=== PATIENT | male | born 1960 | race African-American/Black ===

== ENCOUNTER → 2019-01-04 | Outpatient (CLI) | payer BC ==
[~2019-01-04] VITALS: Ht 167.6 cm; Wt 81.6 kg
[~2019-01-04] MED LIST: AMARYL4 MG PO; BENADRYL25 MG PO; GLUMETZA500 PO; INVANZ1 GM IV; INVOKANA300 MG PO; METFORMIN HCL500 MG PO; NORCO 5-325 TA1 EAC1 PO; OSENI 25-30 MG1 EACH PO; PERCOCET 10-321 EACH PO; TRAMADOL 50 MG50 MG PO; VALSARTAN-HCTZ1 EAC3 PO
--- NOTE | ~2019-01-04 | HPC ---
[facility] [place] [address] PAIN MANAGEMENT CONSULTATION Name: ALISSA KRUEGER [id number] Admission: 01/04/19 ������������������ Attend Phys: Alfredo Rey DO Discharge: ������������������ Date of : 62 Report #: [id number] THIS REPORT FOR: //name// CC: Alfredo Marcos MD DATE OF SERVICE: 01/04/2019 REFERRING PHYSICIAN: Mi Rubio MD. CHIEF COMPLAINT: Low back pain. HISTORY OF PRESENT ILLNESS: As you know, the patient is a 58-year-old male who reports acute onset of low back pain that began 05/28/2018. The patient reports that he was involved in some type of injury at work that led to symptoms involving his low back and his neck. Apparently, the neck findings were such that the patient had to undergo surgery. He continues to complain of chronic back pain for which he was sent for MRI. The MRI findings show minimal changes fairly typical for 58-year-old males. He has been treated for the cervical issues. He has also sought evaluation for left shoulder pain that has been diagnosed as acromioclavicular arthritic changes fairly typical for a 58-year-old male. There has been no surgery proposed for the left shoulder to date. The patient was subsequently referred to our clinic to discuss treatment options for ongoing chronic low back pain. The patient indicates his pain is steady, periodic and brief in its presentation. He indicates the pain as shooting, aching, throbbing and stabbing, places current pain score 6/10, daily average 7/10, worst pain has been as 10/10. The patient states his pain is exacerbated with repeated movement, standing for any length of time or sitting for any length of time, tends to improve with sleep. The patient has been referred to our service by his primary care physician and his surgeon for evaluation for suspected lumbar radiculopathy. PAST MEDICAL HISTORY: 1. Diabetes mellitus type 2. 2. Hypertension. 3. Chronic neck pain. 4. Chronic low back pain. PAST SURGICAL HISTORY: Fusion of the cervical spine. SOCIAL HISTORY: The patient smokes 4 cigarettes per day. He has done this so for approximately 15 years. He indicates use of marijuana. He indicates use of [address] [address] PAIN MANAGEMENT CONSULTATION Name: ALISSA KRUEGER Room #: REG [facility]#: [id number] Admission: 01/04/19 ������������������ Attend Phys: Alfredo Rey DO Discharge: ������������������ Date of : 62 Report #: [id number] one alcohol beverage per day. 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 He is working, but at a sedentary work level at present. He is considering litigation and is currently being covered by workmen's compensation for his neck injury. He is unaccompanied today. REVIEW OF SYSTEMS: Positive for decrease in appetite, fatigue and weakness, frequent and recurrent headaches, wearing corrective eyewear, chronic sinus problems with rhinitis, shortness of breath walking or lying flat, numbness and tingling sensations in the upper extremities bilaterally, nervousness, depression, insomnia, memory loss and confusion, chronic low back pain. All other review of systems negative per 12-point review of systems other than those listed in history of present illness. PAIN IMPACT SCORE: 47/70 indicating moderate to severe interference of daily activities secondary to pain. ALLERGIES: NO KNOWN DRUG ALLERGIES. CURRENT MEDICATIONS: Benadryl 25 mg p.o. at bedtime, hydrocodone/acetaminophen 5/325 one tab p.o. q. 4 hours p.r.n. for pain, tramadol 50 mg every 6 hours p.r.n. for mild pain, glimepiride 4 mg once a day, metformin 500 mg 2 tabs p.o. b.i.d., Invokana 300 mg once a day, valsartan/hydrochlorothiazide 320/25 mg 1 tab p.o. every day. IMAGING: MRI of the lumbar spine obtained on 06/23/2018 shows L1-L2 unremarkable, L2-L3 unremarkable. L3-L4 shows mild disk desiccation, mild bulging of the annulus, mild bilateral facet arthropathy and ligamentum flavum thickening, mild effacement of the thecal sac, mild to moderate bilateral neural foraminal narrowing. L4-L5 shows disk desiccation, diffuse disk bulge, bilateral facet arthropathy, ligamentum flavum hypertrophy, mild narrowing of the spinal canal and compression of the thecal sac, moderate to advanced bilateral neural foraminal stenosis. L5-S1 disk desiccation, diffuse disk bulge present slightly eccentric to the left, hypertrophic facet arthropathy, ligamentum flavum hypertrophy, mild narrowing of the central canal with compression of the ventral thecal sac, moderate right and moderate to advanced left neural foraminal stenosis. PHYSICAL EXAMINATION: VITAL SIGNS: Blood pressure 145/92, pulse 86, respiratory rate 20 and unlabored. The patient is 100% on room air. Height 5 feet 6 inches tall, weight 180 pounds, BMI calculated 29.1. GENERAL: Well-developed, well-nourished, well-hydrated 58-year-old male who appears his stated age. He is placing pain score today 6/10. HEENT: Normocephalic, atraumatic. Pupils equal, round, reactive to light. Extraocular muscles are intact. Sclerae nonicteric without injection. NEUROLOGIC: Cranial nerves 2-12 grossly intact. Speech fluent. The patient [facility] [address] [place] [address] PAIN MANAGEMENT CONSULTATION Name: ALISSA KRUEGER LOUIE Room #: REG [facility].#: [id number] Admission: 01/04/19 ������������������ Attend Phys: Alfredo Rey DO Discharge: ������������������ Date of : 62 Report #: [id number] deemed a fair historian. LUNGS: Clear, no wheeze, rhonchi or rales. CARDIOVASCULAR: Regular. No appreciable gallop, no rub. ABDOMEN: Soft, nontender, nondistended, normoactive bowel sounds. EXTREMITIES: Show no clubbing, no cyanosis, and no edema. MUSCULOSKELETAL: There is mild palpatory tenderness over the paraspinal musculature of lower lumbar spine. No spinous process tenderness. Seated straight leg raising negative. Supine straight leg raising negative. Chris's test negative. Modified Gaenslen's positive for axial low back pain. Ankle clonus negative. Babinski is negative. Muscle bulk and tone appears equal and symmetrical in comparing left lower extremity over right. Deep tendinous reflexes are 2+/4 at patella and Achilles. Pain is elicited standing from a seated position. Lumbar provocation testing is met with increasing pain. ASSESSMENT: 1. Facet arthropathy of the lumbar spine without radiculopathy. 2. Degeneration of the lumbar spine. 3. Mild displacement of lumbar intervertebral disk without radiculopathy. 4. Neural foraminal stenosis of lumbar spine. 5. Intractable pain. PLAN: 1. Based on today's physical exam and the history the patient has provided, the description the patient uses in regards to pain as well as the location of symptoms and the findings of his MRI, likely source of the patient's pain is a combination of chronic lumbar radiculopathy without significant radiation of symptoms and facet arthropathy of the lumbar spine. The findings of the patient's MRI appear to be age-related findings. I do not note any acute changes that would correlate with the patient's symptoms. The findings of facet arthropathy and ligamentum flavum hypertrophy are definitively age related. These are not findings that are typical from any type of injury. There is a mildly displaced eccentric disk bulge noted at the L5-S1 level, but symptoms are not consistent with left radiculopathy that would be possible from this eccentric disk positioning. The axial nature of the patient's current symptoms would more correlate with facet arthropathy. We discussed with the patient today treatment options to address not only chronic lumbar radiculopathy, but also to address facet arthropathy, the following was discussed with the patient. We discussed physical therapy, stretching exercises, core strengthening as the gold standard treatment. Given the lack of any significant findings from the MRI, this would be the most effective long-term treatment option. The patient apparently has begun physical therapy or is still in physical therapy. It was hard to discern from the patient's conversation today, though I do not feel that physical therapy has been concentrated on the back, it appears to be related more to cervical and upper extremity issues. This could be adjusted to address low back as well. We discussed medication management with suggestions of [address] [address] PAIN MANAGEMENT CONSULTATION Name: ALISSA KRUEGER Room #: REG [facility] Cameron#: [id number] Admission: 01/04/19 ������������������ Attend Phys: Alfredo Rey, DO Discharge: ������������������ Date of : 62 Report #: [id number] treatment to initiate neuropathic pain medication, which will help not only with the patient's ongoing upper extremity neuropathic symptoms, but also could help alleviate some of his axial back pain. We also discussed injection therapies for which the patient was referred to our clinic to address chronic lumbar radicular symptoms. We discussed epidural injection to address facet arthropathy pain, intra-articular facet injections, medial branch nerve blocks and radiofrequency lesioning. We also discussed surgical options, though at this point, surgery does not appear to be necessary, though addressing the neural foramen may be ultimately necessary in the future. After reviewing the risks and benefits of all proposed treatment options, the patient chose to delay interventional treatments. 2. We have advised the patient at this time that we would make suggestions to his PCP in regards to addition of neuropathic medications. We would recommend either gabapentin or possibly Cymbalta as this will help with his neuropathic pain he is describing in his upper extremities that is residual post-surgery and Cymbalta has been indicated to be an effective agent for chronic axial back pain. In fact, its new indication is for chronic axial back symptoms. We will defer to the primary team if they wish to initiate any neuropathic medications. 3. We have advised the patient we will be available to see him back in followup visit to address his back symptoms with injection therapies. We would recommend initially an epidural injection to address the radicular component to his pain with the intermittent symptoms that radiate down the legs. We would then look towards doing intra-articular facet injections, medial branch nerve blocks and radiofrequency lesioning to address his age-related facet arthropathy pain noted on MRI. The patient will consider his options and make an appointment back with us when he feels he needs to undergo more aggressive treatment options. 4. We wish to thank the referring physicians for the opportunity to see this patient in consultation. We will await his return to determine interventional treatments and will keep you apprised of his response. Again, we wish to thank each of the referring physicians for the opportunity to see this patient in consultation. ��������������������������������������������� ���������������������������������������� By: ��������������������������������������������� [id number] 0001 Alfredo Rey DO /nt
[2019-01-04 13:35] VITALS: BP 145/92
--- NOTE | 2019-01-04 14:16 | NUR ---
Pain Clinic Assessment: 1. History of Osteoarthritis: History of Rheumatoid Arthritis: 2. Height: 5 ft. 6 in. 167.6 cm. Weight: 180.0 lb. oz. 81.648 kg. Patient's BMI: 29.1 3. Vital Signs: BP: 145/92 Pulse: 86 Resp: 20 Temp: 02 Sat: 100 ECG Mon: 4. Pain Intensity: 6 5. Fall Risk: Dizziness: Y Needs help standing or walking: Y Fallen in the last 3 months: Y Fall risk comments: 6. Patient on Blood Thinner: None 7. History of Hypertension: Y 8. Opioid Therapy greater than 6 weeks: Y Opiate Contract Signed: 9. Risk Assessment Tool Provided: 10. Functional Assessment Tool: 11. Recreational Drug Use: Past greater than 3 mos Drug Type: MARAJUANIA Tobacco Use: Current Every Day Smoker Tobacco Type: Cigarettes Amount or Packs/day: How Many Years: 15 Alcohol Use: Yes Frequency: Weekly Quant: 4
== END ==
LOC: PAIN 06:47
DX: M47.816 Spondylosis without myelopathy or radiculopathy, lumbar region (principal); M51.26 Other intervertebral disc displacement, lumbar region; M54.2 Cervicalgia; G89.4 Chronic pain syndrome; E11.9 Type 2 diabetes mellitus without complications; I10 Essential (primary) hypertension; F17.210 Nicotine dependence, cigarettes, uncomplicated; Z79.899 Other long term (current) drug therapy; Z72.89 Other problems related to lifestyle

== ENCOUNTER 2020-05-03 21:36 | Inpatient (IN) | payer BC ==
[~2020-05-03] VITALS: Ht 170.2 cm; Wt 70.3 kg
--- NOTE | ~2020-05-03 | O ---
[facility] [place] [address] [place] [address] OPERATIVE REPORT Name: ALISSA KRUEGER Room #: 433-I ADM IN M.R.#: [id number] Admission: 05/04/20 Attend Phys: Rod Yeager MD Discharge: Date of : 62 Report #: [id number] THIS REPORT FOR: cc: Mi Rubio MD,Mi Warren,Wilfredo Srinivasan MD ~ CC: Mi Yeager DATE OF SERVICE: 05/06/2020 PREOPERATIVE DIAGNOSIS: Left ischiorectal abscess. POSTOPERATIVE DIAGNOSIS: Left ischiorectal abscess. OPERATION: Incision and drainage of left ischiorectal abscess. SURGEON: Wilfredo Warren MD ANESTHESIA: General. ESTIMATED BLOOD LOSS: Minimal. SPECIMEN: None. DESCRIPTION OF PROCEDURE: After informed consent was obtained, the patient was brought to the operating room and placed supine. SCDs were placed and working, preoperative antibiotics were administered, general anesthesia was induced. The patient was placed in the dorsal lithotomy position. The area was then prepped and draped with Betadine. He had an area of fluctuance on the left side approximately 1 cm from the anal verge. This was incised with the cautery. A fernández of pus was noted. I then excised an approximately 2 x 2 cm area of skin. Again, more pus was expressed. Loculations were broken up bluntly. I then irrigated the area copiously with normal saline. It was then packed with sterile gauze. Sterile dressings were applied. COMPLICATIONS: None. DISPOSITION: The patient was taken to recovery in satisfactory condition. By: [id number] Wilfredo Warren MD /nt
[2020-05-03 21:39] VITALS: BP 101/56
[2020-05-03] MEDS ORDERED: TYLENOL325 MG PO (22:07)
[2020-05-03] MEDS ORDERED: HYDROCHLOROTHIA25 M2 PO (22:09)
[2020-05-03] MEDS ORDERED: COZAAR 25 MG TA25 M2 PO (22:10)
[2020-05-03] MEDS ORDERED: SENNA PLUS TAB1 EACH PO (22:10)
[2020-05-03] MEDS ORDERED: OXYCODONE PO (22:11)
[2020-05-03] MEDS ORDERED: NOVOLOG100 UNIT/M SUBQ (22:11)
[2020-05-03] MEDS ORDERED: AMARYL2 MG PO (22:12)
[2020-05-03] MEDS ORDERED: CEFTRIAXONE2 GM IV (22:13)
[2020-05-03] MEDS ORDERED: SLEEP AID50 MG PO (22:14)
[2020-05-03] MEDS ORDERED: MAG-AL LIQUID30 ML PO (22:15)
[2020-05-04] MEDS ORDERED: BISACODYL10 MG RECTAL (01:09)
[2020-05-04 02:36] LABS: URINE BILIRUBIN NEGATIVE (Negative); URINE BLOOD 1+ (Negative); URINE CLARITY SL CLOUDY; URINE COLOR YELLOW; URINE GLUCOSE-RANDOM* NEGATIVE (Negative); URINE KETONES NEGATIVE (Negative); URINE NITRITE-REFLEX NEGATIVE (Negative); URINE PROTEIN (DIPSTICK) 2+ (Negative); URINE UROBILINOGEN 0.2 E.U./dl (0.2-1.0)
[2020-05-04 03:04] LABS: URINE LEUKOCYTES-REFLEX 1+ (Negative)
[2020-05-04 03:16] LABS: BACTERIA-REFLEX 1-9 Few /HPF (None Seen); CASTS None Seen /LPF (None Seen); CRYSTALS None Seen /LPF (None Seen); MUCUS 4-6 Moderate strn/LPF (None Seen); SQUAMOUS 0-3 Few /LPF (0-3); URINE RBC 3-10 Few /HPF (0-2); URINE WBC-REFLEX 6-15 Few /HPF (0-5)
[2020-05-04 03:20] LABS: ABSOLUTE NEUTROPHILS 10.1 thou/uL (1.4-8.2); BASOPHILS 0.6 % (0.0-2.0); EOSINOPHILS 2.6 % (0.0-3.0); HEMATOCRIT 25.4 % (42.0-52.0); HEMOGLOBIN 8.2 gm/dL (14.0-18.0); LYMPHOCYTES 14.8 % (24.0-44.0); MCH 26.2 pg (26.0-34.0); MCHC 32.4 g/dL (28.0-37.0); MCV 80.9 fL (80.0-100.0); MONOCYTES 10.3 % (1.0-8.0); PLATELET COUNT 518 thou/uL (150-400); POLYS 71.7 % (36.0-66.0); RBC 3.14 mil/uL (4.50-6.00); RDW 14.4 % (10.5-14.5); WBC 14.1 thou/uL (4.0-11.0)
[2020-05-04 03:28] LABS: CALCIUM 8.6 mg/dL (8.5-10.1); CREATININE 1.8 mg/dL (0.7-1.3); POTASSIUM 3.5 mmol/L (3.5-5.1)
[2020-05-04 03:34] LABS: ALBUMIN 1.6 g/dL (3.4-5.0); DIRECT BILIRUBIN 0.1 mg/dL (<0.1-0.2); TOTAL BILIRUBIN 0.4 mg/dL (0.2-1.0); TOTAL PROTEIN 7.7 g/dL (6.4-8.2)
--- NOTE | 2020-05-04 08:29 | NUR ---
SPOKE TO PT'S BROTHER (TAMMY) AND PROVIDED AN UPDATE [phone]
--- NOTE | 2020-05-04 12:43 | NUR ---
RD consult received today for pt with poor nutrition. Pt not admitted to a room yet. From a rehab facility and with sepsis due to perirectal abscess, UTI. Hx diabetes and pelvic hematoma following a fall. Chart reviewed, pt currently npo. Possible severe wt loss over 1.5yrs 30 lb if wts in [employer] are accurate. Provider has indicated severe protein calorie malnutrition. Will follow up Thursday, once pt assigned an acute stay room and complete nutrition evaluation.
[2020-05-04 15:00] VITALS: BP 100/69
[2020-05-04 21:32] VITALS: BP 111/68
--- NOTE | 2020-05-04 21:49 | NUR ---
Attempted to call report to RN on 4th floor. Will attempt to call back.
--- NOTE | 2020-05-04 22:01 | NUR ---
ATTEMPTED TO CALL BACK TO THE ER. NO RESPONSE.
[2020-05-04 22:51] VITALS: BP 101/48
[2020-05-04 23:06] LABS: GLYCOHEMOGLOBIN (HGB A1C) 11.6 % (4.8-5.6)
[2020-05-04 23:22] VITALS: BP 106/64
--- NOTE | 2020-05-05 04:24 | NUR ---
PT ADMITTED INTO ROOM 433 AT AROUND 2300 HRS. PT ALERT AND ORIENTED. AFEBRILE. CONTINUES ON AGGRESSIVE ABT TREATMENT FOR THE PERIRECTAL ABCSESS. BUTTOCK IS VERY TENDER. PT HAD A BM. HE HAS NO CONTROL OF BM AND ALSO TENDS TO BE INCONTINENT OF BLADDER. DENIES ANY NAUSEA OR VOMITING. C/O ALOT OF ABDOMINAL GASES.NO EDEMA. SCDS IN PLACE TO BLE. IVF INFUSING TOO.NEEDS ASSIST TO REPOSITION IN BED.DENIES ANY SOA OR COUGH.IVP MORPHINE WORKING FOR HIS PAIN.FALL PREC IN PLACE.CALL LIGHT WITHIN REACH.WILL CONTINUE WITH POC TILL EOS.
[2020-05-05 08:00] VITALS: BP 117/59
[2020-05-05 08:19] LABS: HEMATOCRIT 22.5 % (42.0-52.0); HEMOGLOBIN 7.2 gm/dL (14.0-18.0); MCH 26.1 pg (26.0-34.0); MCHC 32.1 g/dL (28.0-37.0); MCV 81.5 fL (80.0-100.0); PLATELET COUNT 561 thou/uL (150-400); RBC 2.76 mil/uL (4.50-6.00); RDW 14.8 % (10.5-14.5); WBC 13.6 thou/uL (4.0-11.0)
[2020-05-05 08:35] LABS: CALCIUM 8.1 mg/dL (8.5-10.1); CREATININE 1.1 mg/dL (0.7-1.3); POTASSIUM 4.9 mmol/L (3.5-5.1)
[2020-05-05 10:32] LABS: ALBUMIN 1.4 g/dL (3.4-5.0); TOTAL BILIRUBIN 0.2 mg/dL (0.2-1.0); TOTAL PROTEIN 7.5 g/dL (6.4-8.2)
[2020-05-05 10:35] LABS: EOSINOPHILS 3.8 % (0.0-3.0); LYMPHOCYTES 13.1 % (24.0-44.0); MONOCYTES 8.9 % (1.0-8.0); POLYS 73.7 % (36.0-66.0)
[2020-05-05 10:36] LABS: ABSOLUTE NEUTROPHILS 10.1 thou/uL (1.4-8.2); BASOPHILS 0.5 % (0.0-2.0)
--- NOTE | 2020-05-05 10:40 | NUR ---
discussed during prime time, going for procedure on thursday for derrell rectal abscess.
[2020-05-05 16:00] VITALS: BP 111/57
[2020-05-05 19:27] VITALS: BP 110/57
--- NOTE | 2020-05-05 20:02 | NUR ---
PATIENT HAS RESTED IN BED THERAPY DID WORK WITH PATIENT. PT HAS HAD PRN PAIN MED WHEN REQUESTED. PLEASANT AND COOPERATIVE WITH CARE. PT TO BE NPO AT MIDNIGHT DR HERRERA TO TAKE PATIENT TO SURGERY 05/06/20.PT HAS HOUSTON RECTAL ABSCESS. PT PLEASANT AND COOPERATIVE WITH CARE.
--- NOTE | 2020-05-06 02:00 | NUR ---
ASSESSMENT COMPLETED. PT CONTINUES ON ABTS AND IVF. AFEBRILE. HE IS MOVING ALOT BETTER IN THE BED W/O MUCH PAIN. SOME STOOL INCONTINENCE. HE WAS ABLE TO USE URINAL BUT WAS INCONTINENT X 1.NPO AFETR MIDNOC. PLAN FOR I/D TODAY.
[2020-05-06 06:33] LABS: HEMATOCRIT 23.1 % (42.0-52.0); HEMOGLOBIN 7.6 gm/dL (14.0-18.0); MCHC 32.9 g/dL (28.0-37.0); MCV 82.1 fL (80.0-100.0); RBC 2.81 mil/uL (4.50-6.00); RDW 14.7 % (10.5-14.5); WBC 12.9 thou/uL (4.0-11.0)
[2020-05-06 06:40] LABS: CALCIUM 8.1 mg/dL (8.5-10.1); CREATININE 1.1 mg/dL (0.7-1.3); POTASSIUM 4.6 mmol/L (3.5-5.1)
[2020-05-06 07:15] VITALS: BP 129/56
--- NOTE | 2020-05-06 10:43 | NUR ---
PT CARE ASSUMED AT 0700. A&Ox4. PT NOT ABLE TO HOLD HIS BOWELS DUE TO THE PRESSURE FROM HIS ABCESS. PT SOAKED IN URINE AND FEECESS. SHOWER GIVEN. SCD'S IN PLACE. IV PATENT WITH NO REDNESS OR EDEMA, FLUIDS INFUSING. COVID NEGATIVE. FALL PROTOCOL IN PLACE. PT WEARING BRIEFS WITH PADDING. OT/PT ON BOARD. ACHS. NPO SINCE MIDNIGHT. SURGERY TODAY. WBC 12.9 THIS AM. VITALS ARE STABLE. CALL LIGHT IN REACH. WILL CONTINUE TO MONITOR.
[2020-05-06 11:12] VITALS: BP 122/58
[2020-05-06 15:25] VITALS: BP 122/69
[2020-05-06 19:45] VITALS: BP 99/53
[2020-05-07 00:10] VITALS: BP 92/54
[2020-05-07 02:50] VITALS: BP 102/67
--- NOTE | 2020-05-07 04:34 | NUR ---
PT LYING IN BED. SOME INCONTINENCE. PERCOCET PROVIDING PAIN RELIEF. RESTING COMFORTABLY. NO NEEDS VOICED. CALL LIGHT WITHIN REACH. FREQUENT OBSERVATION.
[2020-05-07 06:07] LABS: HEMATOCRIT 23.2 % (42.0-52.0); HEMOGLOBIN 7.4 gm/dL (14.0-18.0); MCH 26.7 pg (26.0-34.0); MCV 83.4 fL (80.0-100.0); RBC 2.79 mil/uL (4.50-6.00); RDW 15.2 % (10.5-14.5); WBC 11.6 thou/uL (4.0-11.0)
[2020-05-07 06:30] LABS: CREATININE 1.1 mg/dL (0.7-1.3); POTASSIUM 4.3 mmol/L (3.5-5.1)
--- NOTE | 2020-05-07 09:24 | NUR ---
ASSESSMENT: CM REVIEWED CHART AND SPOKE WITH PATIENT. PT IS ALERT AND ORIENTED X4. PT WAS ADMITTED FOR SEPSIS AND HAS LEFT HOUSTON-RECTAL ABSESS. PT HAD I & D ON 05/06 AND IS ON IV ANBX. PT CAME FROM [facility]. PT REPORTS HE NORMALLY LIVES IN AN APT ALONE AND HAS A CANE AND WALKER AT HOME. PT STATES DEPENDING ON HOW HE DOES WITH THERAPY HE PLANS TO GO BACK TO [facility] OR HOME TO HIS SISTERS HOME WITH HH. CM FAXED CLINICAL TO [facility] TO UPDATE THEM. PT REPORTS THAT HE BELIEVES HIS SOCIAL SECURITY IS STARTING ON 05/08 BUT WOULD LIKE TO VERIFY THAT. CM SENT REFERRAL TO MED ASSIST. CM WILL CONTINUE TO FOLLOW TO ASSIST NEEDED.
--- NOTE | 2020-05-07 16:27 | NUR ---
DR HERRERA HERE TO SEE PATIENT WANTS ALL PACKING REMOVED AND JUST COVER WITH DRESSING. DR UPTON IS DCING FLUIDS.
[2020-05-07 19:04] VITALS: BP 119/69
--- NOTE | 2020-05-07 20:02 | NUR ---
PATIENT TOOK SHOWER THIS EVENING USED SHOWER NOZZLE SITZ BATH. PT ALERT XS 4. PT IS CONT VS INCONT OF B&B. PT GIVEN PRN PAIN MED ORDERED WHEN REQUESTED.
--- NOTE | 2020-05-08 02:02 | NUR ---
ASSUMED PT CARE AT 1900.PT INCONT OF B& B.LAB CALLED AND STATED THAT WE NEED AEROBIC AND ANAEROBIC CX ON PT'S WOUND.PT HAD A BM AND THE WOUND DRSG WAS SOILED IN THE PROCESS OF THE COOKIE BREAKER CLEANING THE BM.WOUND CLEANED WITH SALINE AND COVERED.NURSE NOT ABLE TO OBTAIN CX AT THIS TIME.PT C/O PAIN ON HIS BUTTOCK,MANAGED WITH MED.PT NOT COMPLIANT WITH USE OF CALL LIGHT,EDUCATION GIVEN.HOURLY ROUND MAINTAINED.WILL CONT TO MONITOR.
[2020-05-08 05:21] VITALS: BP 137/70
[2020-05-08 10:23] VITALS: BP 121/70
--- NOTE | 2020-05-08 11:49 | NUR ---
PT CARE ASSUMED AT 0700. A&Ox4. PT CONTINUES TO URINATE ALL OVER THE FLOOR INSTEAD OF USING THE URINAL AND WHEN ASKED WHY HE STATES "I DID MY BEST" AND TURNS AWAY. PT ALSO HAS BM'S IN THE BED WITHOUT ATTEMPTING TO CALL ANYONE TO HELP HIM GO TO THE BATHROOM. IV PATENT WITH NO REDNESS OR EDEMA, FLUIDS INFUSING. WOUND CARE COMPLEETED. PER DR. HERRERA PT IS CLEARED ON HIS END TO DC. PER DR. HERRERA CULTURES CAN BE CANCELLED THAT WERE NOT OBTAINED DURING SURGERY. FALL PROTOCOL IN PLACE. CALL LIGHT IN REACH.
--- NOTE | 2020-05-08 12:59 | NUR ---
on-going assessment: PT REMAINS ON IV ANBX. CM FAXED UPDATED CLINICAL TO [facility] THIS AM INCLUDING PT/OT AND STILL AWAITING INSURANCE AUTH AT THIS TIME. CM WILL CONTINUE TO FOLLOW.
[2020-05-08] MEDS ORDERED: PERCOCET PO (14:11)
[2020-05-08] MEDS ORDERED: AUGMENTIN 875-1 EACH PO (14:12)
--- NOTE | 2020-05-08 14:59 | NUR ---
ON-GOING ASSESSMENT: CM REVIEWED CHART AND SPOKE WITH ATTENDING. PT IS STABLE FOR DISCHARGE TODAY TO [facility] AND CM SPOKE WITH [facility]AA[facility] ESQUEDA WHO REPORTS THAT THEY HAVE INSURANCE AUTH TO ACCEPT PT TODAY. CM FAXED OVER DISCHARGE ORDER AND NEGATIVE COVID TEST AND CONFIRMED THE RECEIVED IT. IKE PROVIDED BEDSIDE RN WITH THE NUMBER FOR REPORT. CM NOTIFIED PATIENT AND HE REPORTS HE WILL TELL HIS FAMILY. CHART COPY WAS ORDERED. PT REPORTS NO FURTHER NEEDS FROM CM. AWAITING A TRANSPORTATION TIME AT THIS TIME. CASE CLOSED.
== END 2020-05-08 18:13 | DRG 853 ==
LOC: ER 21:36 → 4S 05-04 04:49 → EROBS 05-04 04:49 → 4S 05-04 23:19
PROVIDERS: Emergency Medicine; Nurse Practitioner Family; ADMIT Hospitalist; ATTEND Hospitalist
PROC: 0J9B0ZZ Drainage of Perineum Subcutaneous Tissue and Fascia, Open Approach (ICD-10-PCS; principal; 2020-05-06)
DX: A41.9 Sepsis, unspecified organism (principal); E43 Unspecified severe protein-calorie malnutrition; N39.0 Urinary tract infection, site not specified; Z20.828 Contact with and (suspected) exposure to other viral communicable diseases; Z96.643 Presence of artificial hip joint, bilateral; G89.29 Other chronic pain; M54.9 Dorsalgia, unspecified; E11.9 Type 2 diabetes mellitus without complications; I10 Essential (primary) hypertension; E86.0 Dehydration; F17.210 Nicotine dependence, cigarettes, uncomplicated; K61.39 Other ischiorectal abscess; R53.81 Other malaise; Z98.1 Arthrodesis status; Z79.899 Other long term (current) drug therapy; Z79.84 Long term (current) use of oral hypoglycemic drugs; Z87.440 Personal history of urinary (tract) infections; Z68.24 Body mass index [BMI] 24.0-24.9, adult
CPT/HCPCS: 10195; 50010; 50101; 50386; 62110; 62900; 70005